=== PATIENT | male | born 1995 | race Caucasian/White ===

== ENCOUNTER → 2016-08-18 | Outpatient (CLI) | payer BC ==
--- NOTE | 2016-08-18 08:30 | Diagnostic Imaging Report ---
PROCEDURE: US abdomen complete. INDICATION: Abdominal pain TECHNIQUE: Multiple real-time zabala scale sonographic images of the abdomen. CORRELATION STUDY: None FINDINGS: LIVER: 17 cm in length. Normal echotexture. Portal vein patent. GALLBLADDER: Present and unremarkable. No shadowing gallstones or pericholecystic fluid. COMMON BILE DUCT: Normal at 3 mm. PANCREAS: Limited in visualization. The visualized portions appearing unremarkable. SPLEEN: Borderline size at 12.4 x 4.7 x 5.4 cm. ABDOMINAL AORTA: Unremarkable, nonaneurysmal. INFERIOR VENA CAVA: Limited in visualization. RIGHT KIDNEY: 11.4 cm. Unremarkable. LEFT KIDNEY: 11.7 cm. Unremarkable. ASCITES: None. IMPRESSION: 1. Relatively unremarkable abdominal ultrasound evaluation. Borderline spleen size. Dictated by: Dictated on workstation # [id number]
== END ==
LOC: RAD 07:14
PROVIDERS: ATTEND Nurse Practitioner Family
DX: R10.11 Right upper quadrant pain (principal)
CPT/HCPCS: 76700